=== PATIENT | female | born 1945 | race Caucasian/White ===

== ENCOUNTER 2023-05-02 19:36 | Emergency (ER) | payer MEDICARE, OTHER ==
[2023-05-02 19:40] VITALS: BP 159/95; PULSE 83
[2023-05-02] MEDS ORDERED: Morphine 2 MG/ML SYRINGE IVPUSH ONE (20:07)
[2023-05-02 20:10] LABS: BASOPHILS ABSOLUTE AUTO 0.02 10^3/uL (0.00-0.50); BASOPHILS PERCENT AUTO 0.2 % (0-1); EOSINOPHILS ABSOLUTE AUTO 0.02 10^3/uL (0.00-1.50); EOSINOPHILS PERCENT AUTO 0.2 % (0-6); HEMATOCRIT 43.2 % (37.0-47.0); HEMOGLOBIN 14.3 g/dL (12.0-16.0); IMMATURE GRAN ABSOLUTE AUTO 0.04 10^3/uL (0.00-0.49); IMMATURE GRAN PERCENT AUTO 0.4 % (0.0-4.9); LYMPHOCYTES ABSOLUTE AUTO 1.24 10^3/uL (0.60-5.00); LYMPHOCYTES PERCENT AUTO 12.9 % (24-44); MEAN CORPUSCULAR HEMOGLOBIN 29.5 pg (27.0-32.0); MEAN CORPUSCULAR HGB CONC 33.1 g/dL (32.0-36.0); MEAN CORPUSCULAR VOLUME 89.3 fL (83.0-97.0); MONOCYTES ABSOLUTE AUTO 0.35 10^3/uL (0.00-1.50); MONOCYTES PERCENT AUTO 3.6 % (0-10); NEUTROPHILS ABSOLUTE AUTO 7.96 x10^3/uL (1.80-8.00); NEUTROPHILS PERCENT AUTO 82.7 % (41-71); PLATELET COUNT,PLT 319 10^3/uL (150-400); RED BLOOD CELL COUNT 4.84 x10^6/uL (4.00-5.50); WHITE BLOOD CELL COUNT,WBC 9.6 10^3/uL (4.0-11.0)
[2023-05-02] MEDS ORDERED: Sodium Chloride 0.9% 500 ML IV SCH (20:15)
[2023-05-02 20:25] LABS: ALANINE AMINOTRANSFERASE,ALT 18 U/L (12-78); ALBUMIN 3.9 g/dL (3.4-5.0); ALKALINE PHOSPHATASE 83 U/L (46-116); ASPARTATE AMNIOTRANSFERASE,AST 18 U/L (15-37); BILIRUBIN TOTAL 0.5 mg/dL (0.0-1.0); BLOOD UREA NITROGEN,BUN 13 mg/dL (7-18); CALCIUM 9.9 mg/dL (8.4-10.1); CARBON DIOXIDE,CO2 28 mmol/L (21-32); CHLORIDE,CL 98 mEq/L (98-106); CREATININE 0.7 mg/dL (0.6-1.0); EST CRCL DRUG DOSING (CG) 54.08 mL/min; GLUCOSE RANDOM 154 mg/dL (75-99); MAGNESIUM 1.8 mg/dL (1.8-2.4); POTASSIUM,K 4.3 mEq/L (3.5-5.0); PROTEIN TOTAL,TP 7.6 g/dL (6.4-8.2); SODIUM,NA 136 mEq/L (136-145)
[2023-05-02 20:26] LABS: C-REACTIVE PROTEIN < 0.50 mg/dL (<=0.50); ESTIMATED GFR 90 mL/min (>=60)
[2023-05-02 20:36] LABS: APPEARANCE,URINE CLEAR (CLEAR); BILIRUBIN,URINE NEGATIVE (NEGATIVE); COLOR,URINE DARK YELLOW (YELLOW); GLUCOSE,URINE NEGATIVE (NEGATIVE); KETONES,URINE 15 mg/dL (NEGATIVE); LEUKOCYTE ESTERASE,URINE NEGATIVE (NEGATIVE); NITRITE,URINE NEGATIVE (NEGATIVE); OCCULT BLOOD,URINE NEGATIVE (NEGATIVE); PH,URINE 5.5 (4.5-8.0); PROTEIN,URINE 30 mg/dL (NEGATIVE)
[2023-05-02] MEDS ORDERED: Ketorolac 30 MG/ML SDV IVPUSH ONE (20:38)
[2023-05-02 20:39] LABS: BACTERIA,URINE NOT SEEN /HPF (NOT SEEN); EPITHELIAL CELLS,URINE FEW /HPF (NOT SEEN); RBC,URINE NOT SEEN /HPF (0-5); WBC,URINE 0-5 /HPF (0-5)
[2023-05-02 20:40] LABS: MUCUS,URINE OCCASIONAL /HPF (NOT SEEN)
[2023-05-02] MEDS ORDERED: Iopamidol 755 Mg/ML 100 ML Bottle IVPUSH ONE (20:52)
[2023-05-02] MEDS ORDERED: Take Home: Acetaminophen/HYDROcodone 325-5 MG, 2 Tab Pack PO ONE (22:03)
== END 2023-05-02 22:16 | disposition home or self-care (01) ==
LOC: CC.ED 19:36
DX: R10.9 Unspecified abdominal pain (principal); I10 Essential (primary) hypertension
CPT/HCPCS: 36415; 74177; 80053; 81001; 83735; 85025; 86140; 96374; 96375; 99284; 99284-25; A9270-GY; J1885; J2270; J7040; Q9967

== ENCOUNTER 2024-02-14 08:13 | Day surgery (SDC) | payer MEDICARE, OTHER ==
[2024-02-14] MEDS: Lactated Ringers 1,000 ML IV SCH (08:26)
[2024-02-14] MEDS ORDERED: Propofol 200 MG/20 ML SDV ONE (08:45)
[2024-02-14] MEDS ORDERED: fentaNYL 50 MCG/ML SDV ONE (08:45)
[2024-02-14] MEDS ORDERED: Ketamine 200 MG/20 ML MDV ONE (08:45)
== END 2024-02-14 10:35 | disposition home or self-care (01) ==
LOC: CC.SDS 08:13
PROVIDERS: ATTEND Surgery
DX: R10.13 Epigastric pain (principal); G89.29 Other chronic pain; I10 Essential (primary) hypertension; E78.5 Hyperlipidemia, unspecified; M81.0 Age-related osteoporosis without current pathological fracture; Z79.899 Other long term (current) drug therapy
CPT/HCPCS: 00811; 99100; J2704; J3010; J3490; J7120